=== PATIENT | male | born 1990 | race Caucasian/White ===

== ENCOUNTER → 2018-04-04 | Outpatient (CLI) | payer OTHER ==
--- NOTE | 2018-04-04 16:01 | RAD ---
Two-view left hip dated 04/04/2018. No comparison available. CLINICAL INDICATION: Intermittent pain for one week. FINDINGS: 2 views left hip show normal bony alignment. No displaced fracture. No acute osseous or articular abnormality. No periostitis or bone destruction. IMPRESSION: No acute findings. Electronically signed by: Les Richards MD (04/04/2018 3:58 PM) [id number]
== END | disposition home or self-care (01) ==
LOC: PMG 15:19
PROVIDERS: ATTEND Family Medicine
DX: M25.552 Pain in left hip (principal)
CPT/HCPCS: 73502

== ENCOUNTER → 2018-09-18 | Outpatient (CLI) | payer OTHER ==
--- NOTE | 2018-09-18 09:39 | RAD ---
Right foot radiograph 09/18/2018 9:22 AM INDICATION: Kicked coffee table with bruising and swelling around the base of the first and second toe COMPARISON: None available. TECHNIQUE: 2 views of the right foot are provided. FINDINGS: There is no acute fracture or dislocation. Bone mineralization is within normal limits. Joint spaces are maintained. Regional soft tissues are within normal limits. There is no soft tissue gas or osseous erosion. IMPRESSION: No acute fracture or dislocation. Electronically signed by: Ai Richard MD (09/18/2018 9:36 AM) [id number]
== END | disposition home or self-care (01) ==
LOC: PMG 09:11
PROVIDERS: ATTEND Physician Assistant
DX: S90.111A Contusion of right great toe without damage to nail, initial encounter (principal); S90.121A Contusion of right lesser toe(s) without damage to nail, initial encounter; W22.8XXA Striking against or struck by other objects, initial encounter; Y93.89 Activity, other specified; Y92.89 Other specified places as the place of occurrence of the external cause; Y99.8 Other external cause status
CPT/HCPCS: 73620